=== PATIENT | male | born 1930 | race Two or more races ===

== ENCOUNTER → 2016-12-10 | Outpatient (CLI) | payer MEDICARE, MEDICAID ==
--- NOTE | 2016-12-10 12:59 | RADRPT ---
PROCEDURE: XR pelvis/right hip. CLINICAL INDICATION: Hip pain TECHNIQUE: AP pelvis/AP and lateral right hip views performed COMPARISON: No prior studies are available for comparison. FINDINGS: There is mild bilateral hip osteoarthrosis. This is associated with joint space narrowing, subchondr al sclerosis and osteophytosis. There is normal mineralization. No fractures or osseous lesions ar e identified. The soft tissues are unremarkable. IMPRESSION: Mild bilateral hip osteoarthrosis. RPTAT: HGDB .Jerry Siegel MD, Date Time Electronically viewed and signed by .Jerry Siegel MD, on 12/10/2016 12:59 .B/
== END | disposition home or self-care (01) ==
LOC: HKI 10:24
PROVIDERS: ATTEND Orthopaedic Surgery
DX: M25.551 Pain in right hip (principal); M70.61 Trochanteric bursitis, right hip
CPT/HCPCS: 20610; 73502; G0463; J1030